=== PATIENT | female | born 1970 ===

== ENCOUNTER 2017-01-28 09:12 | Day surgery (SDC) | payer OTHER ==
--- NOTE | 2017-01-27 21:49 | History and Physical Report ---
History of Present Illness Date of examination: 01/28/17 Chief complaint: Dysfunctional Uterine Bleeding History of present illness: Pt is a 46 year old female with dysfunctional uterine bleeding who presents for surgical management after minimal response to medical management. She had an endometrial biopsy on 12/31/16 which showed disordered proliferative phase endometrium, stromal and glandular breakdown. 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 Family/Genetic History: none Social history: no significant social history, Medications and Allergies Allergies Allergy/AdvReac Type Severity Reaction Status Date / Time No Known Allergies Allergy Unverified 01/26/17 18:00 Home Medications Medication Instructions Recorded Confirmed Last Taken Type Multivitamin Tab [Multiple Vitamin 1 each PO QDAY 01/26/17 01/26/17 Unknown History TAB (Theragran)] medroxyPROGESTERone ACETATE 5 mg PO DAILY 01/26/17 01/26/17 Unknown History [Provera] Active Meds: Active Medications Cefazolin Sodium (Ancef/Sterile Water 2 Gm/20 Ml) 2 gm in 20 mls @ 80 mls/hr IV PREOP NR PRN Reason: Protocol Lactated Ringer's (Lactated Ringers) 1,000 mls @ 100 mls/hr IV DIRECT CONSTANTINO Review of Systems All systems: negative - Physical Exam Breasts: Positive: deferred Cardiovascular: Regular rate Lungs: Positive: Clear to auscultation Abdomen: Positive: soft Extremities: Positive: normal Results All other labs normal. Ultrasound: other (12/09/16: Uterus retroverted measuring 9.3x6.4x5.8 cm. Nodularity in fundal part of uterus 2.8x2.5x2.7 cml. Posterior lower uterine lesion 2.2 cm. EMS 9 mm. Both ovaries appear normal. No abnormal fluid collections.) Assessment and Plan A: Dysfunctional Uterine Bleeding Fibroid Uterus P: Proceed with Novasure endometrial ablation and other indicated procedures.
[~2017-01-28 09:12] MED LIST: ANCEF/STERILE WATER 2 GM/20 ML 2 GM/20 ML SYRINGE IV NR; LACTATED RINGERS 1,000 ML IV SCH; PEPCID PO NR; VERSED IV NR
--- NOTE | 2017-01-28 09:50 | Anesthesia Consultation ---
Anesthesia Consult and Med Hx Date of service: 01/28/17 - Airway Anesthetic Teeth Evaluation: Good, Dentures ROM Head & Neck: Adequate Mental/Hyoid Distance: Adequate Mallampati Class: Class I Intubation Access Assessment: Good - Pulmonary Exam CTA: Yes - Cardiac Exam Cardiac Exam: RRR - Central Nervous System Hx Psychiatric Problems: No - Other Systems Hx Cancer: No - Additional Comments Anesthesia Medical History Comments: Healthy. No previous anesthesia complications. Upper dentures are difficult to remove. Patient has requested to leave them in. Lower teeth are in tact.
--- NOTE | 2017-01-28 09:50 | Anesthesia Day of Surgery ---
Anesthesia Day of Surgery - Day of Surgery Patient Examined: Yes Patient H&P Reviewed: Yes Patient is NPO: Yes
[2017-01-28 10:27] LABS: Hematocrit 28.1 % (30.3-42.9); Hemoglobin 9.2 gm/dl (10.1-14.3); Mean Corpuscular HGB Conc 33 % (30-34); Mean Corpuscular Hemoglobin 28 pg (28-32); Mean Corpuscular Volume 84 fl (79-97); Platelet Count 419 K/mm3 (140-440); Red Blood Count 3.34 M/mm3 (3.65-5.03); Red Cell Distribution Width 13.7 % (13.2-15.2); White Blood Count 4.8 K/mm3 (4.5-11.0)
[2017-01-28] MEDS ORDERED: SILVER NITRATE TP ONE (10:44)
[2017-01-28] MEDS ORDERED: XYLOCAINE MPF 2% ONE (10:50)
[2017-01-28] MEDS ORDERED: DILAUDID ONE (10:50)
[2017-01-28] MEDS ORDERED: DIPRIVAN 10 MG/ML IV ONE (10:50)
[2017-01-28] MEDS ORDERED: ZOFRAN ONE (11:20)
[2017-01-28] MEDS ORDERED: DECADRON ONE (11:21)
[2017-01-28] MEDS ORDERED: NACL 0.9% IR ONE (11:28)
[2017-01-28] MEDS ORDERED: LACTATED RINGERS 1,000 ML ONE (11:42)
[2017-01-28] MEDS ORDERED: ANCEF/STERILE WATER 2 GM/20 ML 2 GM/20 ML SYRINGE IV NR (12:00)
[2017-01-28] MEDS ORDERED: ZOFRAN IV PRN (12:00)
[2017-01-28] MEDS ORDERED: NEO SYNEPHRINE/NS Syringe(OR USE) IV ONE (12:00)
[2017-01-28] MEDS: DILAUDID IV PRN ×2 (12:20→12:40)
--- NOTE | 2017-01-28 12:25 | Operative Report ---
Operative Report Operative Report: Date of procedure: January 28, 2017 Preoperative diagnosis: 1) Dysfunctional Uterine Bleeding 2) Fibroid Uterus Postoperative diagnosis: Same Procedure: 1)Diagnostic Hysteroscopy 2)Dilation and Curettage 3)NovaSure Endometrial Ablation Surgeon: Zahida Barreto M.D. Findings: 1) Small retroverted mobile uterus that sounded to 8 cm 2) Proliferative endometrium on hysteroscopy Anesthesia: General with LMA Estimated blood loss: Minimal (10 mL ) IV fluid: 950 mL Urine output: 75 mL clear prior to the procedure Specimens: endometrial curettings to pathology Drains: None Complications: None Disposition: Stable to PACU Indications for procedure: The patient is a 46-year-old female 3 para 2011 who desires surgical management of dysfunctional uterine bleeding after failed medical management. Operation in detail: After the risks, benefits, alternatives and complications of the procedure is going to the patient, she gave informed consent for the procedure. She was subsequently taken to the operating room and placed in the dorsal supine position. SCDs noted to be in place and functioning. Gen. anesthesia was then induced without difficulty. The patient was in placement dorsal lithotomy position and prepped and draped in normal sterile fashion. A timeout was performed. An exam under anesthesia was performed yielding a mobile retroverted uterus. The bladder was then catheterized and drained of 75 mL of urine. An open sided speculum was then placed into the vagina for adequate visualization of the cervix. This the anterior lip of the cervix was then grasped with a tenaculum for traction. The cervical length was then sounded to 4 cm and the uterus was then sounded to 8 cm. The cavity length was then noted to be 4 cm. At this time a hysteroscope was introduced to visualize the endometrial cavity which revealed proliferative endometrium. A sharp endometrial curettage was then performed and the curettings were sent to pathology. Attention was then turned to the ablation. At this time Kebede dilators were used to reduce sequentially dilate the cervix to a #25. Next the disposable NovaSure device was connected to the RF controller. The NovaSure disposable device was deployed to the locked position and noted to fully extend. The device was then placed in the unlocked position. The disposable device was then inserted into the uterine cavity with traction on the tenaculum. The device was then seated per protocol. After moving the device back 0.5 cm, the device was moved superiorly and inferiorly and rotated clockwise and counterclockwise to 45. The cavity width at this time was noted to be 4.2 cm. The cervical collar was then advanced to the cervix. The cavity assessment was then initiated and passed. The ablation procedure was then initiated and lasted for 1 minute and 55 seconds. The cervical collar was moved away from the cervix, the device was moved to the unlocked position, and the disposable NovaSure device was removed from the uterine cavity. The hysteroscope was reintroduced to visualize the charred endometrial cavity.At this time the single-tooth tenaculum was removed from the cervix. The tenaculum puncture sites are hemostatic. Hemostasis was noted. The speculum was then removed from the vagina and the procedure was ended. The patient was replaced into the dorsal supine position and extubated without difficulty. She was subsequently to the PACU in stable condition. She tolerated the procedure well. All counts were correct 2.
--- NOTE | 2017-01-28 12:31 | Short Stay Summary ---
Short Stay Documentation Date of service: 01/28/17 - History H&P: dictated Social history: no significant social history, - Allergies and Medications Current Medications: Allergies No Known Allergies Allergy (Unverified 01/26/17 18:00) Home Medications Medication Instructions Recorded Confirmed Last Taken Type Multivitamin Tab [Multiple Vitamin 1 each PO QDAY 01/26/17 01/26/17 Unknown History TAB (Theragran)] medroxyPROGESTERone ACETATE 5 mg PO DAILY 01/26/17 01/26/17 Unknown History [Provera] Active Medications Famotidine (Pepcid) 20 mg PO PREOP NR Stop: 01/28/17 23:45 Last Admin: 01/28/17 10:27 Dose: 20 mg Hydromorphone HCl (Dilaudid) 0.5 mg IV Q10MIN PRN PRN Reason: Pain , Severe (7-10) Stop: 01/28/17 15:00 Lactated Ringer's (Lactated Ringers) 1,000 mls @ 100 mls/hr IV DIRECT CONSTANTINO Last Admin: 01/28/17 10:26 Dose: 100 mls/hr Cefazolin Sodium (Ancef/Sterile Water 2 Gm/20 Ml) 2 gm in 20 mls @ 80 mls/hr IV PREOP NR PRN Reason: Protocol Stop: 01/28/17 15:00 Midazolam HCl (Versed) 2 mg IV PREOP NR Stop: 01/28/17 23:59 Last Admin: 01/28/17 10:26 Dose: 2 mg - Physical exam Breasts: deferred - Brief post op/procedure progress note Date of procedure: 01/28/17 Pre-op diagnosis: Dysfunctional Uterine Bleeding, Fibroid Uterus Post-op diagnosis: same Procedure: Diagnostic hysteroscopy, dilation and curettage, Novasure endometrial ablation Anesthesia: GETA Findings: 1) Small retroverted mobile uterus that sounded to 8 cm 2) Proliferative endometrium on hysteroscopy Surgeon: HARLEY CARTWRIGHT Estimated blood loss: minimal Pathology: list (endometrial curettings) Specimen disposition: to lab Condition: stable - Hospital course Hospital course: Pt underwent diagnostic hysteroscopy, dilation and curettage and Novasure endometrial ablation which she tolerated well. She was observed in the PACU until she met discharge criteria. - Disposition Condition at discharge: Stable Disposition: TO HOME OR SELFCARE - Discharge Diagnoses (1) Dysfunctional uterine bleeding Status: Acute (2) Fibroid uterus Status: Acute Qualifiers: Uterine leiomyoma location: U (3) Anemia Status: Acute Qualifiers: Anemia type: A Iron deficiency anemia type: chronic blood loss Vitamin B12 deficiency anemia type: V Folate deficiency anemia type: F Bone marrow failure anemia type: B Hemolytic anemia type: H Other causes of anemia: O Chronic kidney disease stage: C Qualified Code(s): D50.0 - Iron deficiency anemia secondary to blood loss (chronic) Short Stay Discharge Plan Activity: other (Nothing in vagina x 4 weeks) Weight Bearing Status: Full Weight Bearing Diet: regular Follow up with: [facility] [Other] - 7 Days HARLEY CARTWRIGHT MD [Staff Physician] - 02/11/17 (postop exam - Please call office for appt ) Prescriptions: Ibuprofen [Motrin] 600 mg PO Q6H PRN #30 tablet PRN Reason: Pain oxyCODONE /ACETAMINOPHEN [Percocet 5/325] 1 tab PO Q6HR PRN #30 tablet PRN Reason: Pain
[2017-01-28] MEDS ORDERED: TORADOL IV ONE (13:00)
[2017-01-28] MEDS ORDERED: PERCOCET 5/325 PO SCH (13:20)
[2017-01-28 14:16] VITALS: BP 127/74
--- NOTE | 2017-01-28 14:32 | Post Anesthesia Evaluation ---
- Post Anesthesia Evaluation Patient Participated: Yes Airway Patent: Yes Stable Respiratory Function: Yes Nausea/Vomiting: No Temp > 96.8F: Yes Pain Manageable: Yes Adequeate Hydration: Yes Anesthesia Complications: No Block Receding Appropriately: Not Applicable Patient on Ventilator: No
[2017-01-28] MEDS ORDERED: ZOFRAN IV SCH (15:00)
== END 2017-01-28 14:55 | disposition home or self-care (01) ==
LOC: OR 09:12
PROVIDERS: ATTEND Obstetrics & Gynecology
DX: D25.9 Leiomyoma of uterus, unspecified (principal); N85.4 Malposition of uterus; D64.9 Anemia, unspecified
CPT/HCPCS: 36415; 58563; 81025; 85027; 86850; 86900; 86901; 88305; A4217; J0690; J1100; J1170; J1885; J2250; J2370; J2405; J2704; J7120